=== PATIENT | male | born 1950 | race Caucasian/White ===

== ENCOUNTER 2021-01-26 21:50 | Emergency (ER) | payer OTHER ==
[~2021-01-26 21:50] MED LIST: CLOPIDOGREL75 MG PO; LEVAQUIN500 MG PO; NEULASTA6 MG/0.6 M SC; NEURONTIN600 MG PO; NOVOLOG FL100 UNIT/1 SQ; NUVIGIL200 MG PO; OMNICEF 300 MG300 MG PO; OXYCODON-ACETA1 EAC1 PO; PERCOCET 7.5-31 EACH PO; PRILOSEC OTC20 MG PO; SYNTHROID112 MCG PO; TOPROL XL100 MG PO; TOPROL XL50 MG PO; TRESIBA FL100 UNIT/1 SQ; ZANTAC150 MG PO; ZOCOR20 MG PO; ZOFRAN8 MG PO; ZYVOX600 MG PO
== END 2021-01-26 23:31 | disposition left against medical advice (07) ==
LOC: ER1 21:50
DX: Z53.21 Procedure and treatment not carried out due to patient leaving prior to being seen by health care provider (principal)